=== PATIENT | male | born 1955 | race American Indian/Alaskan Native ===

== ENCOUNTER 2022-04-05 15:19 | Outpatient (CLI) | payer MEDICARE ==
[2022-04-05 16:11] LABS: Albumin 4.1 g/dL (3.9-5); Calcium 9.7 mg/dL (8.4-10.2)
[2022-04-05 17:20] LABS: Hematocrit 27.4 % (35.5-45.6); Hemoglobin 9.1 gm/dl (11.8-15.2); Mean Corpuscular HGB Conc 33 % (32-34); Mean Corpuscular Volume 85 fl (84-94); Platelet Count 257 K/mm3 (140-440); Red Blood Count 3.22 M/mm3 (3.65-5.03)
[2022-04-05 17:21] LABS: Erythrocyte Sedimentation Rate 1 mm/Hr (0-20)
== END 2022-04-05 15:20 | disposition home or self-care (01) ==
LOC: LAB 15:19
PROVIDERS: ATTEND Specialist
DX: I63.22 Cerebral infarction due to unspecified occlusion or stenosis of basilar artery (principal)
CPT/HCPCS: 36415; 80053; 85027; 85652